=== PATIENT | male | born 1975 | race Caucasian/White ===

== ENCOUNTER 2018-09-18 17:24 | Inpatient (IN) | payer MEDICAID ==
[~2018-09-18] VITALS: Ht 175.3 cm; Wt 134.3 kg
[2018-09-18] MEDS ORDERED: SODIUM CHLORIDE 0.9% 1,000 ML IV ONE ×2 (17:36→19:30)
[2018-09-18] MEDS ORDERED: ONDANSETRON HCL 4MG/2ML INJ IV STA (17:36)
[2018-09-18] MEDS ORDERED: MORPHINE SULFATE 4 MG/ML CPJ (NOT FOR IM USE) IV ONE ×3 (18:30→22:45)
[2018-09-18 18:51] LABS: BASOPHILS % 0.3 % (0.0-2.0); EOSINOPHILS % 0.1 % (0.0-5.0); HEMATOCRIT. 41.9 % (42.0-52.0); HEMOGLOBIN. 14.4 g/dL (14.0-18.0); LYMPHOCYTES % 12.6 % (20.0-50.0); MEAN CORPUSCULAR HEMOGLOBIN 28.8 pg (28.0-32.0); MEAN CORPUSCULAR VOLUME 83.9 fL (80.0-94.0); MEAN PLATELET VOLUME 9.3 fl (7.4-10.4); PLATELET 244 x1000/uL (130-400); RED CELL DISTRIBUTION WIDTH 13.5 % (11.6-14.6)
[2018-09-18 18:56] LABS: CHLORIDE 100 mEq/L (98-107)
[2018-09-18 19:00] LABS: BG BASE EXCESS -2.5 mmol/L (-2.0-2.0); BG CARBOXYHEMOGLOBIN 1.1 % (0.5-1.5); BG DEOXYHEMOGLOBIN 5.8 % (0.0-5.0); BG FRACTION INSPIRED OXYGEN 21; BG HCO3 ACT 21.3 mmol/L (22.0-26.0); BG METHEMOGLOBIN 0.2 % (0.0-1.5); BG OXYGEN SATURATION 94.1 % (92.0-98.5); BG OXYHEMOGLOBIN 92.9 % (94.0-97.0); BG PCO2 34.2 mmHg (35.0-45.0); BG PH 7.413 (7.350-7.450); BG PO2 70.9 mmHg (75.0-100.0); BG SAMPLE SITE RIGHT RADIAL; BG TOTAL HEMOGLOBIN 14.2 g/dL (12.0-18.0); BG VENT MODE ROOM AIR
[2018-09-18 19:00] LABS: PARTIAL THROMBOPLASTIN TIME 31.5 sec (23.4-31.0); PROTHROMBIN TIME 10.7 sec (9.6-11.0)
[2018-09-18 19:01] LABS: ETHANOL BLOOD < 10 mg/dL
[2018-09-18 19:03] LABS: BETA HYDROXYBUTYRATE 0.2 mMol/L (0.0-0.3)
[2018-09-18] MEDS ORDERED: ONDANSETRON HCL 4MG/2ML INJ IV ONE (19:30)
[2018-09-18 21:26] LABS: CLARITY URINE CLOUDY (CLEAR); COLOR URINE DARK YELLOW (YELLOW); KETONES URINE 1+ (NEGATIVE); LEUKOCYTE ESTERASE URINE TRACE (NEGATIVE); NITRITE URINE NEGATIVE (NEGATIVE); OCCULT BLOOD URINE NEGATIVE (NEGATIVE); PROTEIN URINE 1+ (NEGATIVE); SPECIFIC GRAVITY URINE 1.041 (1.005-1.030)
[2018-09-18 21:50] LABS: *BARBITURATES SCREEN URINE NEGATIVE (NEGATIVE); *BENZODIAZEPINES SCREEN URINE NEGATIVE (NEGATIVE); *COCAINE SCREEN URINE NEGATIVE (NEGATIVE); METHADONE URINE SCREEN NEGATIVE (NEGATIVE); OPIATES URINE SCREEN PRESUMTIVE POSITIVE (NEGATIVE)
[2018-09-18 21:51] LABS: *AMPHETAMINES SCREEN URINE NEGATIVE (NEGATIVE); CANNABINOID URINE SCREEN NEGATIVE (NEGATIVE); PHENCYCLIDINE URINE SCREEN NEGATIVE (NEGATIVE)
[2018-09-18] MEDS ORDERED: FAMOTIDINE 20MG/2ML VIAL IV ONE (22:45)
[2018-09-18] MEDS ORDERED: CEFTRIAXONE 1 G PREMIX 50 ML IV ONE (22:45)
[2018-09-18] MEDS ORDERED: METRONIDAZOLE 500 MG PREMIX 100 ML IV ONE (22:45)
[2018-09-18] MEDS ORDERED: IOHEXOL-300 100 ML BOTTLE ONE (22:53)
[2018-09-19] VITALS (7 sets, daily range): BP systolic 108–194; BP diastolic 82–111
[2018-09-19] MEDS ORDERED: IPRATROPIUM/ALBUTEROL 0.5-3(2.5)MG/3ML NEB INH PRN (00:45)
[2018-09-19] MEDS ORDERED: ACETAMINOPHEN 325MG TABLET PO PRN (00:45)
[2018-09-19] MEDS: HYDROCODONE/ACETAMINOPHEN 5/325MG TABLET PO PRN ×2 (01:49→19:45)
[2018-09-19] MEDS: DEXT 5%/0.9% NACL 1,000 ML IV SCH ×3 (03:43→22:01)
[2018-09-19] MEDS ORDERED: VENL150C2 MT (03:56)
[2018-09-19] MEDS ORDERED: TH200 MT (03:56)
[2018-09-19] MEDS ORDERED: MIRT15TA6 MT (03:56)
[2018-09-19] MEDS ORDERED: LISI40TA4 MT (03:56)
[2018-09-19] MEDS: MORPHINE SULFATE 2 MG/ML CPJ (NOT FOR IM USE) IV PRN ×5 (04:51→22:53)
[2018-09-19] MEDS: METRONIDAZOLE 500 MG PREMIX 100 ML IV SCH ×3 (05:04→23:24)
[2018-09-19] MEDS: LORAZEPAM 0.5MG TABLET PO PRN ×2 (11:30→20:14)
[2018-09-19] MEDS: CLONIDINE 0.1MG TABLET PO PRN ×2 (11:30→20:14)
[2018-09-19] MEDS ORDERED: PNEUMOCOCCAL 23-VAL P-SAC VAC 0.5 ML IM ONE (12:00)
[2018-09-19 19:50] LABS: BASOPHILS % 0.2 % (0.0-2.0); HEMATOCRIT. 41.7 % (42.0-52.0); HEMOGLOBIN. 14.5 g/dL (14.0-18.0); LYMPHOCYTES % 7.1 % (20.0-50.0); MEAN CORPUSCULAR HEMOGLOBIN 29.4 pg (28.0-32.0); MEAN CORPUSCULAR VOLUME 84.6 fL (80.0-94.0); MEAN PLATELET VOLUME 9.4 fl (7.4-10.4); MONOCYTES % 5.9 % (2.0-8.0); NEUTROPHILS % 86.8 % (40.0-76.0); PLATELET 229 x1000/uL (130-400); RED BLOOD CELL COUNT 4.93 mill/uL (4.7-6.1); RED CELL DISTRIBUTION WIDTH 13.7 % (11.6-14.6)
[2018-09-19] MEDS: DILTIAZEM HCL 30MG TABLET PO SCH (22:53)
[2018-09-19] MEDS: DEXT 5%/0.45% NACL 1000ML 1,000 ML IV SCH (22:54)
[2018-09-19] MEDS ORDERED: CEFTRIAXONE 1 G PREMIX 50 ML IV SCH ×2 (23:00)
[2018-09-20] VITALS (11 sets, daily range): BP systolic 114–186; BP diastolic 58–115
[2018-09-20] MEDS ORDERED: IOHEXOL-350 100 ML BOTTLE ONE (03:49)
[2018-09-20] MEDS: HYDROCODONE/ACETAMINOPHEN 5/325MG TABLET PO PRN ×2 (04:32→04:47)
[2018-09-20] MEDS: METRONIDAZOLE 500 MG PREMIX 100 ML IV SCH ×3 (06:31→22:15)
[2018-09-20] MEDS: CLONIDINE 0.1MG TABLET PO PRN ×3 (06:45→16:19)
[2018-09-20] MEDS: DILTIAZEM HCL 30MG TABLET PO SCH ×3 (06:46→17:15)
[2018-09-20 08:45] LABS: BASOPHILS % 0.4 % (0.0-2.0); EOSINOPHILS % 0.1 % (0.0-5.0); HEMATOCRIT. 39.2 % (42.0-52.0); HEMOGLOBIN. 13.3 g/dL (14.0-18.0); LYMPHOCYTES % 7.5 % (20.0-50.0); MEAN CORPUSCULAR HEMOGLOBIN 28.8 pg (28.0-32.0); MEAN CORPUSCULAR VOLUME 84.7 fL (80.0-94.0); MEAN PLATELET VOLUME 8.9 fl (7.4-10.4); MONOCYTES % 6.6 % (2.0-8.0); NEUTROPHILS % 85.4 % (40.0-76.0); PLATELET 215 x1000/uL (130-400); RED BLOOD CELL COUNT 4.62 mill/uL (4.7-6.1); RED CELL DISTRIBUTION WIDTH 13.7 % (11.6-14.6)
[2018-09-20 08:55] LABS: CHLORIDE 97 mEq/L (98-107)
[2018-09-20] MEDS: MORPHINE SULFATE 2 MG/ML CPJ (NOT FOR IM USE) IV PRN ×2 (10:15→16:20)
[2018-09-20] MEDS: INSULIN GLARGINE UD 100 UNITS/ML SYR SUBCUT SCH ×2 (12:18→22:44)
[2018-09-20] MEDS ORDERED: DEXTROSE 50% WATER 50ML SYRINGE IV PRN (13:15)
[2018-09-20] MEDS: DOCUSATE SODIUM 250MG CAPSULE PO SCH (13:28)
[2018-09-20] MEDS: DEXT 5%/0.45% NACL 1000ML 1,000 ML IV SCH (13:29)
[2018-09-20] MEDS ORDERED: METRONIDAZOLE 500 MG PREMIX 100 ML IV SCH (14:00)
[2018-09-20] MEDS: BLOOD SUGAR DIAGNOSTIC STRIP TEST SCH ×2 (17:09→22:00)
[2018-09-20] MEDS: INSULIN LISPRO 100 UNITS/ML SUBCUT SCH (17:24)
[2018-09-20] MEDS: MORPHINE SULFATE 4 MG/ML CPJ (NOT FOR IM USE) IV PRN ×2 (20:33→21:10)
[2018-09-20] MEDS: PANTOPRAZOLE 40MG DR TABLET PO SCH (21:22)
[2018-09-20] MEDS: LEVOFLOXACIN 750MG PREMIX 150 ML IV SCH (22:50)
[2018-09-21] VITALS (10 sets, daily range): BP systolic 134–182; BP diastolic 77–116
[2018-09-21] MEDS: DILTIAZEM HCL 30MG TABLET PO SCH ×4 (00:08→18:03)
[2018-09-21] MEDS: LORAZEPAM 0.5MG TABLET PO PRN (00:09)
[2018-09-21] MEDS: CLONIDINE 0.1MG TABLET PO PRN ×2 (00:10→09:56)
[2018-09-21] MEDS: INSULIN LISPRO 100 UNITS/ML SUBCUT SCH ×4 (00:16→18:12)
[2018-09-21] MEDS: MORPHINE SULFATE 4 MG/ML CPJ (NOT FOR IM USE) IV PRN ×3 (03:21→18:04)
[2018-09-21] MEDS: DEXT 5%/0.45% NACL 1000ML 1,000 ML IV SCH ×2 (03:38→18:12)
[2018-09-21] MEDS: METRONIDAZOLE 500 MG PREMIX 100 ML IV SCH ×3 (05:45→21:27)
[2018-09-21] MEDS: BLOOD SUGAR DIAGNOSTIC STRIP TEST SCH ×3 (05:53→17:53)
[2018-09-21] MEDS: PANTOPRAZOLE 40MG DR TABLET PO SCH ×2 (06:07→21:26)
[2018-09-21 07:06] LABS: BASOPHILS % 0.2 % (0.0-2.0); EOSINOPHILS % 0.4 % (0.0-5.0); HEMATOCRIT. 35.8 % (42.0-52.0); LYMPHOCYTES % 8.5 % (20.0-50.0); MEAN CORPUSCULAR HEMOGLOBIN 28.8 pg (28.0-32.0); MEAN PLATELET VOLUME 9.5 fl (7.4-10.4); MONOCYTES % 6.9 % (2.0-8.0); PLATELET 225 x1000/uL (130-400); RED BLOOD CELL COUNT 4.17 mill/uL (4.7-6.1); RED CELL DISTRIBUTION WIDTH 13.5 % (11.6-14.6)
[2018-09-21 07:35] LABS: CHLORIDE 96 mEq/L (98-107)
[2018-09-21] MEDS: DOCUSATE SODIUM 250MG CAPSULE PO SCH (09:03)
[2018-09-21] MEDS: INSULIN GLARGINE UD 100 UNITS/ML SYR SUBCUT SCH ×2 (09:51→22:00)
[2018-09-21] MEDS ORDERED: POTASSIUM CHLORIDE 20MEQ TABLET SR PO NR (11:15)
[2018-09-21] MEDS: LISINOPRIL 40MG TABLET PO SCH (15:07)
[2018-09-21] MEDS: HYDROCODONE/ACETAMINOPHEN 5/325MG TABLET PO PRN (21:26)
[2018-09-21] MEDS: LEVOFLOXACIN 750MG PREMIX 150 ML IV SCH (21:27)
[2018-09-22] VITALS (13 sets, daily range): BP systolic 119–192; BP diastolic 88–124
[2018-09-22] MEDS: BLOOD SUGAR DIAGNOSTIC STRIP TEST SCH ×4 (01:00→17:56)
[2018-09-22] MEDS: INSULIN LISPRO 100 UNITS/ML SUBCUT SCH ×4 (01:33→17:56)
[2018-09-22] MEDS: HYDROCODONE/ACETAMINOPHEN 5/325MG TABLET PO PRN ×5 (02:02→21:35)
[2018-09-22] MEDS: METRONIDAZOLE 500 MG PREMIX 100 ML IV SCH ×2 (06:13→14:38)
[2018-09-22] MEDS: DILTIAZEM HCL 30MG TABLET PO SCH ×2 (06:14)
[2018-09-22] MEDS: CLONIDINE 0.1MG TABLET PO PRN ×2 (06:14→22:24)
[2018-09-22 07:40] LABS: BASOPHILS % 0.2 % (0.0-2.0); EOSINOPHILS % 0.8 % (0.0-5.0); HEMATOCRIT. 34.2 % (42.0-52.0); HEMOGLOBIN. 11.6 g/dL (14.0-18.0); LYMPHOCYTES % 7.7 % (20.0-50.0); MEAN CORPUSCULAR HEMOGLOBIN 28.9 pg (28.0-32.0); MEAN CORPUSCULAR VOLUME 85.6 fL (80.0-94.0); MEAN PLATELET VOLUME 8.4 fl (7.4-10.4); MONOCYTES % 7.1 % (2.0-8.0); NEUTROPHILS % 84.2 % (40.0-76.0); PLATELET 271 x1000/uL (130-400); RED CELL DISTRIBUTION WIDTH 13.5 % (11.6-14.6)
[2018-09-22 08:06] LABS: CHLORIDE 97 mEq/L (98-107)
[2018-09-22] MEDS: MORPHINE SULFATE 4 MG/ML CPJ (NOT FOR IM USE) IV PRN ×2 (08:42→17:26)
[2018-09-22] MEDS: PANTOPRAZOLE 40MG DR TABLET PO SCH ×2 (08:42→21:30)
[2018-09-22] MEDS: DOCUSATE SODIUM 250MG CAPSULE PO SCH (08:42)
[2018-09-22] MEDS: LISINOPRIL 40MG TABLET PO SCH (09:00)
[2018-09-22] MEDS ORDERED: POTASSIUM CHLORIDE 20MEQ TABLET SR PO NR (09:30)
[2018-09-22] MEDS: AMLODIPINE 5MG TABLET PO SCH ×2 (10:00→21:33)
[2018-09-22] MEDS ORDERED: KCL 20MEQ/100ML PREMIX 100 ML IV NR (10:30)
[2018-09-22] MEDS: INSULIN GLARGINE UD 100 UNITS/ML SYR SUBCUT SCH ×2 (11:07→21:43)
[2018-09-22] MEDS: DEXT 5%/0.45% NACL 1000ML 1,000 ML IV SCH ×2 (12:17→22:00)
[2018-09-22] MEDS: ONDANSETRON HCL 4MG/2ML INJ IV PRN ×2 (17:26→21:35)
[2018-09-22] MEDS ORDERED: AMLODIPINE 2.5MG TABLET PO SCH (21:00)
[2018-09-23] VITALS: BP 140/90
[2018-09-23] MEDS: INSULIN LISPRO 100 UNITS/ML SUBCUT SCH ×2 (01:02→08:23)
[2018-09-23 02:00] VITALS: BP_SYST 146; BP_SYST 165; BP_DIAS 109; BP_DIAS 113
[2018-09-23] MEDS: ONDANSETRON HCL 4MG/2ML INJ IV PRN (03:32)
[2018-09-23 04:04] VITALS: BP_SYST 165; BP_SYST 227; BP_DIAS 109; BP_DIAS 169
[2018-09-23] MEDS: CLONIDINE 0.1MG TABLET PO PRN (04:09)
[2018-09-23 06:00] VITALS: BP 166/100
[2018-09-23] MEDS: BLOOD SUGAR DIAGNOSTIC STRIP TEST SCH ×2 (06:00)
[2018-09-23 06:29] LABS: HEMATOCRIT. 34.5 % (42.0-52.0); HEMOGLOBIN. 11.6 g/dL (14.0-18.0); MEAN CORPUSCULAR HEMOGLOBIN 28.8 pg (28.0-32.0); MEAN CORPUSCULAR VOLUME 85.8 fL (80.0-94.0); MEAN PLATELET VOLUME 8.2 fl (7.4-10.4); PLATELET 286 x1000/uL (130-400); RED BLOOD CELL COUNT 4.02 mill/uL (4.7-6.1); RED CELL DISTRIBUTION WIDTH 13.3 % (11.6-14.6)
[2018-09-23 06:48] LABS: CHLORIDE 97 mEq/L (98-107)
[2018-09-23 08:00] VITALS: BP 154/103
[2018-09-23] MEDS: LISINOPRIL 40MG TABLET PO SCH (08:22)
[2018-09-23] MEDS: DOCUSATE SODIUM 250MG CAPSULE PO SCH (08:22)
[2018-09-23] MEDS: MORPHINE SULFATE 4 MG/ML CPJ (NOT FOR IM USE) IV PRN (08:22)
[2018-09-23] MEDS ORDERED: FAMOTIDINE 20MG TABLET PO SCH (09:00)
[2018-09-23 10:00] VITALS: BP 164/115
[2018-09-23] MEDS ORDERED: POTASSIUM CHLORIDE 20MEQ TABLET SR PO NR (10:15)
[2018-09-23] MEDS: AMLODIPINE 5MG TABLET PO SCH (10:29)
[2018-09-23] MEDS: INSULIN GLARGINE UD 100 UNITS/ML SYR SUBCUT SCH (10:29)
[2018-09-23 18:20] LABS: PLATELET ESTIMATE NORMAL
== END 2018-09-23 12:00 | disposition left against medical advice (07) | DRG 241 ==
LOC: ER 17:24 → EDBEDREQTM 09-19 00:06 → EDBEDREQ 09-19 00:06 → EDBEDREQDT 09-19 00:06 → ENRESERV 09-19 00:09 → 6EST 09-19 01:08 → 7WST 09-19 18:53 → 3WST 09-20 02:42
PROVIDERS: ADMIT Internal Medicine; ATTEND Internal Medicine
DX: K29.80 Duodenitis without bleeding (principal); K85.20 Alcohol induced acute pancreatitis without necrosis or infection; R65.10 Systemic inflammatory response syndrome (SIRS) of non-infectious origin without acute organ dysfunction; E11.65 Type 2 diabetes mellitus with hyperglycemia; K83.8 Other specified diseases of biliary tract; E66.01 Morbid (severe) obesity due to excess calories; K76.0 Fatty (change of) liver, not elsewhere classified; R00.0 Tachycardia, unspecified; I10 Essential (primary) hypertension; R80.9 Proteinuria, unspecified; Z53.21 Procedure and treatment not carried out due to patient leaving prior to being seen by health care provider; F10.21 Alcohol dependence, in remission; E78.1 Pure hyperglyceridemia; Z79.4 Long term (current) use of insulin; Z68.41 Body mass index [BMI] 40.0-44.9, adult
CPT/HCPCS: 36415; 36600; 71045; 71275; 74018; 74177; 76700; 80048; 80061; 80076; 80305; 80320; 82010; 82375; 82805; 82962; 83036; 83880; 84145; 84484; 85379; 86301; 90732; 93005; 99285; J0696; J1815; J1956; J2270; J2405; J3480; J3490; J7030; J7042; Q9967; G0480

== ENCOUNTER 2020-03-06 21:13 | Emergency (ER) | payer MEDICAID, OTHER ==
[~2020-03-06] VITALS: Ht 175.3 cm; Wt 107.0 kg
[~2020-03-06 21:13] MED LIST: LISI40TA4 MT; MIRT15TA6 MT; TH200 MT; VENL150C2 MT
[2020-03-06 21:30] VITALS: BP 142/90
[2020-03-06] MEDS ORDERED: KETOROLAC 30MG/ML VIAL IM ONE (23:15)
[2020-03-07] MEDS ORDERED: HYDROCODONE/ACETAMINOPHEN 5/325MG TABLET PO ONE (00:30)
== END 2020-03-07 00:44 | disposition home or self-care (01) ==
LOC: ER 21:13
DX: S20.211A Contusion of right front wall of thorax, initial encounter (principal); I10 Essential (primary) hypertension; F15.10 Other stimulant abuse, uncomplicated; Z79.899 Other long term (current) drug therapy; Y04.0XXA Assault by unarmed brawl or fight, initial encounter; Y93.89 Activity, other specified; Y92.89 Other specified places as the place of occurrence of the external cause; Y99.8 Other external cause status
CPT/HCPCS: 71101; 96372; 99283; J1885

== ENCOUNTER 2020-11-11 15:14 | Emergency (ER) | payer MEDICAID, OTHER ==
[~2020-11-11] VITALS: Ht 175.3 cm; Wt 113.0 kg
[~2020-11-11 15:14] MED LIST changes: +HYDR25TA PO; +LISI40TA13 MT; -LISI40TA4 MT; +SIMV10TA97 PO
[2020-11-11] MEDS ORDERED: MORPHINE SULFATE 4 MG/ML CPJ (NOT FOR IM USE) IV STA (16:11)
[2020-11-11] MEDS ORDERED: ONDANSETRON HCL 4MG/2ML INJ IV STA (16:11)
[2020-11-11] MEDS ORDERED: SODIUM CHLORIDE 0.9% 1,000 ML IV ONE (16:15)
[2020-11-11 16:22] LABS: BASOPHILS % 0.5 % (0.0-2.0); EOSINOPHILS % 0.1 % (0.0-5.0); HEMOGLOBIN. 15.8 g/dL (14.0-18.0); LYMPHOCYTES % 21.3 % (20.0-50.0); MEAN CORPUSCULAR HEMOGLOBIN 30.7 pg (28.0-32.0); MEAN CORPUSCULAR VOLUME 87.1 fL (80.0-94.0); MEAN PLATELET VOLUME 7.8 fl (7.4-10.4); MONOCYTES % 5.2 % (2.0-8.0); NEUTROPHILS % 72.9 % (40.0-76.0); PLATELET 332 x1000/uL (130-400); RED BLOOD CELL COUNT 5.17 mill/uL (4.7-6.1)
[2020-11-11 16:28] LABS: CHLORIDE 95 mEq/L (98-107)
[2020-11-11 16:37] LABS: PROTHROMBIN TIME 10.3 sec (9.6-11.0)
[2020-11-11] MEDS ORDERED: KETOROLAC 15MG/ML VIAL IV ONE (18:30)
[2020-11-11 18:59] LABS: CLARITY URINE CLEAR (CLEAR); COLOR URINE YELLOW (YELLOW); KETONES URINE 3+ (NEGATIVE); LEUKOCYTE ESTERASE URINE NEGATIVE (NEGATIVE); NITRITE URINE NEGATIVE (NEGATIVE); OCCULT BLOOD URINE 2+ (NEGATIVE); PROTEIN URINE TRACE (NEGATIVE); UROBILINOGEN URINE 0.2 E.U./dL (0.2-1.0)
[2020-11-11] MEDS ORDERED: IBUP-2029 MT (19:24)
[2020-11-11 19:35] VITALS: BP 129/87
== END 2020-11-11 20:01 | disposition home or self-care (01) ==
LOC: ER 15:14
DX: N20.0 Calculus of kidney (principal); R74.01 Elevation of levels of liver transaminase levels; R03.0 Elevated blood-pressure reading, without diagnosis of hypertension; R73.9 Hyperglycemia, unspecified; F12.90 Cannabis use, unspecified, uncomplicated
CPT/HCPCS: 36415; 76705; 80053; 81003; 83690; 85025; 85610; 96374; 96375; 99284; J1885; J2270; J2405; J7030

== ENCOUNTER 2020-11-24 18:57 | Emergency (ER) | payer MEDICAID, OTHER ==
[~2020-11-24] VITALS: Ht 175.3 cm; Wt 90.0 kg
[~2020-11-24 18:57] MED LIST changes: +IBUP-2029 MT
[2020-11-24] MEDS ORDERED: KETOROLAC 30MG/ML VIAL IV STA (20:44)
[2020-11-24 21:54] VITALS: BP 127/69
== END 2020-11-24 22:50 | disposition left against medical advice (07) ==
LOC: ER 18:57
DX: M79.662 Pain in left lower leg (principal); E66.9 Obesity, unspecified; F12.10 Cannabis abuse, uncomplicated; F15.10 Other stimulant abuse, uncomplicated; I10 Essential (primary) hypertension; E11.9 Type 2 diabetes mellitus without complications; Z88.5 Allergy status to narcotic agent; Z98.890 Other specified postprocedural states; Z86.59 Personal history of other mental and behavioral disorders; Z68.29 Body mass index [BMI] 29.0-29.9, adult; W18.30XA Fall on same level, unspecified, initial encounter; Y93.01 Activity, walking, marching and hiking; Y92.89 Other specified places as the place of occurrence of the external cause; Y99.8 Other external cause status
CPT/HCPCS: 73590; 73610; 73630; 93971; 96374; 99284; J1885